=== PATIENT | male | born 1985 | race Caucasian/White ===

== ENCOUNTER 2018-12-09 10:33 | Inpatient (IN) | payer BC ==
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
[2018-12-09 11:18] LABS: ABS Lymphocytes 1.2 10^3/ul (1.0-4.8); ABS Monocytes 0.5 10^3/ul (0-0.8); ABS Neutrophils 7.2 10^3/ul (1.5-7.7); Eosinophil % 0.4 %; Hematocrit 49 % (42-52); Lymphocyte % 13.4 %; Mean Corpuscular HGB Conc 34 g/dL (31-36); Mean Corpuscular Hemoglobin 31 pg (27-31); Mean Corpuscular Volume 90 fL (80-94); Mean Platelet Volume 7.4 fL (7.4-10.4); Nucleated Red Blood Cells % 0.1; Platelet Count 282 10^3/uL (150-450); Red Blood Count 5.49 10^6 /uL (4.18-5.48); Red Cell Distribution Width 13 % (10-15); White Blood Count 8.9 10^3/uL (3.5-10.8)
[2018-12-09] MEDS ORDERED: LORazepam TAB(*) 1 MG PO ONE ×2 (11:25→20:09)
[2018-12-09 11:46] LABS: ALT 24 U/L (7-52); AST 22 U/L (13-39); Albumin 5.4 g/dL (3.2-5.2); Albumin/Globulin Ratio 1.7 (1-3); Alkaline Phosphatase 61 U/L (34-104); Anion Gap 10 mmol/L (2-11); BUN/Creatinine Ratio 13.1 (8-20); Blood Urea Nitrogen 11 mg/dL (6-24); CO2 Carbon Dioxide 28 mmol/L (22-32); Calcium 10.4 mg/dL (8.6-10.3); Chloride 100 mmol/L (101-111); EGFR African American 127.3 (>60); EGFR Non-African American 105.2 (>60); Globulin 3.1 g/dL (2-4); Glucose 88 mg/dL (70-100); Potassium 4.1 mmol/L (3.5-5.0); Sodium 138 mmol/L (135-145); Total Protein 8.5 g/dL (6.4-8.9)
[2018-12-09 11:51] LABS: Acetaminophen < 15 mcg/mL; Alcohol < 10 mg/dL (<10); Salicylate < 2.50 mg/dL (<30)
[2018-12-09 12:05] LABS: TSH (Thyroid Stimulating Horm) 0.95 mcIU/mL (0.34-5.60)
[2018-12-09 14:23] LABS: Urine Appearance Clear; Urine Bacteria Absent (Absent); Urine Bilirubin Negative (Negative); Urine Blood 1+ (Negative); Urine Color Yellow; Urine Glucose Negative (Negative); Urine Ketones 2+ (Negative); Urine Nitrite Negative (Negative); Urine Protein Negative (Negative); Urine Red Blood Cell Absent (Absent); Urine Specific Gravity 1.009 (1.010-1.030); Urine Squamous Epithelial Cell Present (Absent); Urine Urobilinogen Negative (Negative); Urine White Blood Cell Absent (Absent)
[2018-12-09] MEDS ORDERED: Acetaminophen TAB* 325 MG PO PRN (14:37)
[2018-12-09] MEDS ORDERED: Al Hydrox/Mg Hydrox/Simet LIQ* 30 ML UDC PO PRN (14:37)
[2018-12-09] MEDS ORDERED: LORazepam TAB(*) 1 MG PO PRN (14:38)
[2018-12-09 14:42] LABS: Urine Benzodiazepine Screen None Detected (None Detect); Urine Opiates Screen None Detected (None Detect)
[2018-12-09] MEDS ORDERED: Ibuprofen TAB* 800 MG PO ONE (20:07)
[2018-12-09] MEDS ORDERED: Ibuprofen TAB* 800 MG PO PRN (20:07)
[2018-12-09] MEDS ORDERED: diPHENhydraMINE PO* 50 MG ONE (20:08)
[2018-12-09] MEDS ORDERED: diPHENhydraMINE PO* 50 MG PO ONE (20:08)
[2018-12-09] MEDS ORDERED: LORazepam TAB(*) 1 MG ONE (20:09)
[2018-12-09] MEDS ORDERED: Haloperidol TAB* 5 MG ONE (20:10)
[2018-12-09] MEDS ORDERED: Haloperidol TAB* 5 MG PO ONE (20:10)
[2018-12-10] MEDS ORDERED: diPHENhydraMINE PO* 50 MG PO PRN (10:54)
[2018-12-10] MEDS: Cetirizine* 10 MG TAB PO SCH (11:31)
[2018-12-10] MEDS: cloNIDine TAB* 0.1 MG PO SCH ×2 (11:31→21:14)
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
[2018-12-10] MEDS: ARIPiprazole TAB* 5 MG PO SCH (21:13)
[2018-12-11] MEDS ORDERED: Influenza VAC *QUAD* 2019-20* 0.5 ML SYRINGE IM ONE (09:00)
[2018-12-11] MEDS: cloNIDine TAB* 0.1 MG PO SCH ×2 (09:10→20:53)
[2018-12-11] MEDS: Cetirizine* 10 MG TAB PO SCH (09:10)
--- NOTE | 2018-12-11 11:19 | PN ---
Subjective - Subjective Date of Service: 12/11/18 Service Type: 81247 Hosp care 25 min moderate complexity Subjective: Patient reports much improvement in agitation and mood. He states this is the first day he woke up in a good mood and is surprised about lack of anger. He states he is less reactive to others. He endorses benefitting from groups and is taking notes on things that apply to him. He is pleasant and conversational. His cousin Jean Paul is present for visiting hours and expresses that he is grateful that Karen called him to bring him to the hospital. 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 Karen states this is relieving to know that he will not lose employment. He reports hopefulness that with current medication and ongoing therapy, he will have more energy and satisfaction at work and home. Objective - General Observations Appearance: Well Groomed Stature: Overweight Posture: WNL Eye Contact: Average Behavior/Activity: WNL - Interaction Observations Attitude Towards Examiner: Cooperative Stated Mood: Euthymic Affect: Full Speech Pattern/Tone: Clear, Appropriate, Normal Volume Thought Process: Coherent, Goal Directed Perception: WNL Hallucination Type: Denies Delusion Type: Denies - Cognitive Function Orientation: A&O x 4 Level of Consciousness: Alert Cognition: WNL Estimated Intelligence: Normal Insight: WNL Judgment Within Normal Limits: No Ability to Make Reasonable Decisions: Moderately Impaired - Medication Compliance Cooperative with Inpatient Medication Regimen: Yes - Group Participation Participates in Group Activities: Yes Assessment - Assessment Merits Inpatient Hospitalization: For Immediate Safety, For Stabilization Inpatient DSM-V Dx: F33.1 Clinical Impression: 33yo wm, domiciled, employed, who presented to the ED with a family member due to suicidal ideation and agitation. He does not have current outpatient treatment and is eager to be connected to outpatient treatment after discharge. He is tolerating new medications and participating in unit programming. He merits hospitalization for immediate safety and stabilization. Plan - Plan Treatment Plan: Name: KAREN LUND JR Birthdate: 1985 [id number] continue acute intensive psychiatric treatment. may decrease to q30min obs. Continued Medication Management: Start Medication Medications: Current Medications Acetaminophen (Tylenol Tab*) 650 mg PO Q4H PRN PRN Reason: for pain; or Temp >101 F Al Hydrox/Mg Hydrox/Simethicone (Maalox Plus*) 30 ml PO Q4H PRN PRN Reason: INDIGESTION Aripiprazole (Abilify Tab*) 5 mg PO BEDTIME [facility] Last Admin: 12/10/18 21:13 Dose: 5 mg Cetirizine HCl (Zyrtec*) 10 mg PO DAILY [facility] Last Admin: 12/11/18 09:10 Dose: 10 mg Clonidine HCl (Catapres Tab*) 0.1 mg PO BID [facility] Last Admin: 12/11/18 09:10 Dose: 0.1 mg Diphenhydramine HCl (Benadryl Po*) 50 mg PO BEDTIME PRN PRN Reason: INSOMNIA Ibuprofen (Motrin Tab*) 800 mg PO Q6H PRN PRN Reason: PAIN Last Admin: 12/10/18 11:34 Dose: 800 mg Lorazepam (Ativan Tab(*)) 1 mg PO Q6H PRN PRN Reason: ANXIETY - Discharge Plan Discharge Plan: Inpatient Hospitalization
[2018-12-11] MEDS: ARIPiprazole TAB* 5 MG PO SCH (20:53)
[2018-12-12 08:53] VITALS: BP 116/79
[2018-12-12] MEDS ORDERED: FLUoxetine CAP* 10 MG PO ONE (12:11)
[2018-12-12] MEDS: cloNIDine TAB* 0.1 MG PO SCH (12:30)
[2018-12-12] MEDS: Cetirizine* 10 MG TAB PO SCH (12:30)
--- NOTE | 2018-12-12 13:01 | DCNOTE ---
Subjective - Subjective Service Types: 59033 Hosp DC Day Mgmt simple under 30 min Discharge Date: 12/12/18 DC Assessment - Assessment Clinical Impression: 33yo wm, domiciled, employed, who presented to the ED with a family member due to suicidal ideation and agitation. He does not have current outpatient treatment and is eager to be connected to outpatient treatment after discharge. He is tolerating new medications and participating in unit programming. He merits hospitalization for immediate safety and stabilization. Inpatient DSM-V Dx: F33.1 Discharge Planning - Discharge Planning Medications: Current Medications Acetaminophen (Tylenol Tab*) 650 mg PO Q4H PRN PRN Reason: for pain; or Temp >101 F Al Hydrox/Mg Hydrox/Simethicone (Maalox Plus*) 30 ml PO Q4H PRN PRN Reason: INDIGESTION Aripiprazole (Abilify Tab*) 5 mg PO BEDTIME [facility] Last Admin: 12/11/18 20:53 Dose: 5 mg Cetirizine HCl (Zyrtec*) 10 mg PO DAILY [facility] Last Admin: 12/12/18 12:30 Dose: 10 mg Clonidine HCl (Catapres Tab*) 0.1 mg PO BID [facility] Last Admin: 12/12/18 12:30 Dose: 0.1 mg Diphenhydramine HCl (Benadryl Po*) 50 mg PO BEDTIME PRN PRN Reason: INSOMNIA Ibuprofen (Motrin Tab*) 800 mg PO Q6H PRN PRN Reason: PAIN Last Admin: 12/10/18 11:34 Dose: 800 mg Lorazepam (Ativan Tab(*)) 1 mg PO Q6H PRN PRN Reason: ANXIETY Discharge Planning: Prescriptions provided for discharge [] Yes [] No Follow up care details as per social work arrangements. Patient response to discharge plan: [] eager for discharge [] agreeable with discharge plan [] ambivalent about discharge [] disagrees with discharge today
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
== END 2018-12-12 14:30 | disposition home or self-care (01) | DRG 751 ==
LOC: ED 10:33 → BSU 14:37 → ED 17:45
PROVIDERS: ADMIT Psychiatry & Neurology Psychiatry; ATTEND Psychiatry & Neurology Psychiatry
DX: F33.1 Major depressive disorder, recurrent, moderate (principal); R45.851 Suicidal ideations; R45.850 Homicidal ideations; F41.9 Anxiety disorder, unspecified; J45.909 Unspecified asthma, uncomplicated; G56.03 Carpal tunnel syndrome, bilateral upper limbs; E66.3 Overweight; R45.1 Restlessness and agitation; F91.3 Oppositional defiant disorder; Z87.891 Personal history of nicotine dependence; Z72.89 Other problems related to lifestyle; Z68.32 Body mass index [BMI] 32.0-32.9, adult; Z23 Encounter for immunization
CPT/HCPCS: 36415; 80053; 80307; 80320; 80329; 81003; 81015; 84443; 85025; 99222; 99232; 99238; 99284; A9270-GY; G0480